=== PATIENT | male | born 1990 | race Caucasian/White ===

== ENCOUNTER 2019-09-22 10:53 | Emergency (ER) | payer SELFPAY ==
[2019-09-22 11:06] VITALS: Wt 68.2 kg
[2019-09-22] MEDS ORDERED: SMZ-TMP DS TABL1 TAB PO (12:52)
[2019-09-22 13:03] VITALS: BP 128/72
== END 2019-09-22 13:04 | disposition home or self-care (01) ==
LOC: D.ER 10:53
DX: K61.1 Rectal abscess (principal)

== ENCOUNTER 2019-09-23 18:06 | Inpatient (IN) | payer MEDICAID ==
[~2019-09-23] VITALS: Ht 165.1 cm; Wt 68.2 kg
[~2019-09-23 18:06] MED LIST: SMZ-TMP DS TABL1 TAB PO
[2019-09-23 19:05] LABS: BASOPHILS 0.1 % (0-2); EOSINOPHILS 0.7 % (0-7); HEMATOCRIT 44.3 % (42.0-54.0); HEMOGLOBIN 14.9 g/dL (13.5-17.5); IMMATURE GRANULOCYTES 0.4 % (0-5); MCH 31.2 pg (26.0-34.0); MCHC 33.6 g/dL (31.0-37.0); MCV 92.9 fL (80.0-100.0); MEAN PLATELET VOLUME 9.3 fL (7.4-10.4); MONOCYTES 9.8 % (2-11); PLATELET COUNT 243 10x3/uL (130-400); RBC 4.77 10x6/uL (4.20-6.10); RDW 12.2 % (11.5-14.5); WBC 16.3 10x3/uL (4.8-10.8)
[2019-09-23 19:28] LABS: CALC OSMOLALITY 269 mosm/kg (275-300); CALCIUM 9.3 mg/dL (8.5-10.1); CARBON DIOXIDE 25.3 mmol/L (21.0-32.0); CHLORIDE - SERUM 99 mmol/L (98-107); CREATININE - SERUM 1.2 mg/dL (0.6-1.3); GLUCOSE 110 mg/dL (74-106); POTASSIUM - SERUM 3.8 mmol/L (3.5-5.1); SODIUM 134 mmol/L (136-145); UREA NITROGEN 16 mg/dL (7-18); eGFR NON AFRICAN AMERICAN 77 mL/min (90-120)
[2019-09-23 19:35] LABS: ALBUMIN 3.7 g/dL (3.4-5.0); ALKALINE PHOSPHATASE 77 U/L (30-120); ALT (SGPT) 47 U/L (10-68); PROTEIN - SERUM 8.1 g/dL (6.4-8.2)
[2019-09-23 20:15] LABS: INR 1.05 (0.85-1.17); PROTIME 13.7 SECONDS (11.6-15.0)
--- NOTE | 2019-09-23 20:54 | NUR ---
PT ARRIVED TO FLOOR AT THIS TIME, MOTHER AT BEDSIDE. NO SIGNS OF DISTRESS. PT DENIES ANY PAIN OR NEEDS AT THIS TIME. CL IN REACH, BED IN LOWEST POSITION.
[2019-09-23 20:57] VITALS: BP 141/86; BMI 25.0
[2019-09-24] VITALS: BP 123/64
--- NOTE | 2019-09-24 00:03 | NUR ---
PT FEVER OF 101.4 REPORTED BY SURGICAL AIDES TEACHER. VERONICA KENT APN AT THIS TIME FOR ANY PRN MEDICATION FOR FEVER.
--- NOTE | 2019-09-24 02:12 | NUR ---
COLLECTED URINE FOR ORDERED STUDIES AND DELIVERED TO LAB.
--- NOTE | 2019-09-24 02:12 | NUR ---
GAVE MORPHINE IVP PER PRN ORDER PER REQUEST FOR PAIN AT LEVEL 10/10. WILL MONITOR FOR EFFECTIVENESS.
[2019-09-24 02:34] LABS: BILIRUBIN NEGATIVE (NEGATIVE); GLUCOSE NEGATIVE (NEGATIVE); KETONE NEGATIVE (NEGATIVE); NITRITE NEGATIVE (NEGATIVE); UROBILINOGEN NORMAL (NORMAL)
[2019-09-24 02:37] LABS: BACTERIA FEW /hpf (NEGATIVE); EPITHELIAL CELLS 0-5 /hpf (0-5); RED CELLS - URINE 0-5 /hpf (0-5); WHITE CELLS - URINE 0-5 /hpf (NEGATIVE)
[2019-09-24 04:00] VITALS: BP 123/78
--- NOTE | 2019-09-24 08:06 | NUR ---
PATIENT RECIEVED FROM PREVIOUS NURSE RESTING IN BED WITH GIRLFRIEND AT SIDE. NPO FOR POSSIBLE PROCEDURE FOR PERIANAL ABSCESS. CL IN REACH
[2019-09-24 09:10] VITALS: BP 130/75
[2019-09-24 09:44] VITALS: Ht 165.1 cm; Wt 68.2 kg
[2019-09-24 12:52] VITALS: BP 127/82
--- NOTE | 2019-09-24 13:37 | NUR ---
PRE-OP MEDICATIONS GIVEN AND PATIENT TAKEN BY BED FOR I&D PERIRECTAL ABCESS.
[2019-09-24 14:56] VITALS: BP 125/80
--- NOTE | 2019-09-24 19:30 | NUR ---
PT SITTING UP IN BED WITHOUT DISTRESS, AOX4. GIRLFRIEND AT BEDSIDE. IV RIGHT FA INFUSING NS @ 75. PT REQUESTING PAIN MED CLOSER TO TIME TO SLEEP. STATES WILL CALL WHEN HE WANTS IT. DENIES OTHER NEEDS AT THIS TIME. CL IN REACH, WILL CTM
[2019-09-24 20:00] VITALS: BP 114/67
--- NOTE | 2019-09-24 22:45 | NUR ---
PT STATES PAIN 9/10 IN RAVI RECTAL AREA. GAVE MORPHINE ORDERED. DENIES OTHER NEEDS. CL IN REACH, WILL CTM
[2019-09-25] VITALS: BP 111/73
--- NOTE | 2019-09-25 01:45 | NUR ---
PT STATES PAIN 9/10 IN RAVI RECTAL AREA, GAVE MORPHINE ORDERED. DENIES OTHER NEEDS. CL IN REACH, WILL CTM
[2019-09-25 04:00] VITALS: BP 105/56
--- NOTE | 2019-09-25 04:45 | NUR ---
PT STATES PAIN 02/06, GAVE MORPHINE ORDERED. DENIES OTHER NEEDS. WILL CTM
[2019-09-25 05:13] LABS: CALC OSMOLALITY 275 mosm/kg (275-300); CALCIUM 8.5 mg/dL (8.5-10.1); CARBON DIOXIDE 28.6 mmol/L (21.0-32.0); CHLORIDE - SERUM 104 mmol/L (98-107); GLUCOSE 128 mg/dL (74-106); MAGNESIUM - SERUM 2.1 mg/dL (1.8-2.4); SODIUM 137 mmol/L (136-145); UREA NITROGEN 13 mg/dL (7-18)
[2019-09-25 05:18] LABS: BASOPHILS 0.1 % (0-2); EOSINOPHILS 0 % (0-7); IMMATURE GRANULOCYTES 0.2 % (0-5); LYMPHOCYTES 6.1 % (15-50); MCHC 33.3 g/dL (31.0-37.0); MCV 92.9 fL (80.0-100.0); MEAN PLATELET VOLUME 9.1 fL (7.4-10.4); MONOCYTES 6.1 % (2-11); NEUTROPHILS 87.5 % (40-80); PLATELET COUNT 256 10x3/uL (130-400); RDW 11.8 % (11.5-14.5); WBC 15.8 10x3/uL (4.8-10.8)
[2019-09-25 05:28] LABS: CREATININE - SERUM 0.8 mg/dL (0.6-1.3); eGFR NON AFRICAN AMERICAN > 90 mL/min (90-120)
--- NOTE | 2019-09-25 08:00 | NUR ---
ASSESSMENT PER FLOW SHEET. PT IS WITHOUT DISTRESS.MONITOR FOR NEEDS
[2019-09-25 08:09] VITALS: BP 105/78
[2019-09-25] MEDS ORDERED: LEVOFLOXACIN500 MG PO (11:18)
[2019-09-25] MEDS ORDERED: FLAGYL500 MG PO (11:18)
[2019-09-25] MEDS ORDERED: HYDROCODON-ACE1 EAC7 PO (11:19)
[2019-09-25] MEDS ORDERED: MIRALAX17 GM PO (11:19)
--- NOTE | 2019-09-25 11:33 | NUR ---
PAIN MEDS ORDERED PER SEP.IV WAS TENDER THIS AM AND DISCONNECTED FROM FLUIDS. IF FLUSHED WITH SALINE,STILL VERY TENDER.IV DCD WITH CATH TIP INTACT. [facility]PA RETURNED TO [facility].
--- NOTE | 2019-09-25 12:45 | NUR ---
DRESSING CHANGED ORDERED.TEACHING WITH FAMILY.
--- NOTE | 2019-09-25 17:35 | NUR ---
DISCHARGE INSTRUCTIONS,STATES UNDERSTANDING.LEFT UNIT VIA WHEELCHAIR FOR TRANSPORT HOME
--- NOTE | 2019-10-02 08:46 | OP ---
PATIENT NAME: MG CHICAS MEDICAL RECORD: [id number] :89 LOCATION:[id number] ADMISSION DATE:09/24/19 SURGEON: ROSY WEIR MD DATE OF OPERATION: 09/24/2019 SURGEON: Rosy Weir MD PREOPERATIVE DIAGNOSIS: Perirectal abscess. POSTOPERATIVE DIAGNOSIS: Perirectal abscess. PROCEDURE PERFORMED: Incision and drainage of a perirectal abscess. ANESTHESIA: General. COMPLICATIONS: None. SPECIMENS: Wound cultures. Case was grossly contaminated. ESTIMATED BLOOD LOSS: 10 cc. OPERATIVE COURSE: After consent was obtained, the patient was taken to the operating room and placed in supine position on the operating table. Next, general anesthesia was given via endotracheal intubation after a timeout was performed to confirm the correct patient and procedure. The patient was placed into the lithotomy position. A digital rectal exam was performed. There was no evidence of a draining sinus into the rectum. There was significant fluctuance and erythema. A perineal block was performed using 30 mL of 1% lidocaine, the area of greatest fluctuance. An elliptical incision was made. There was approximately 20 cc of purulent fluid expressed in the wound. At this time, anaerobic and aerobic cultures were obtained and sent for Gram stain culture and sensitivity. All loculations of the abscess cavity were broken up with blunt dissection. The abscess cavity was then irrigated with normal saline. The abscess cavity was then packed with 1-inch iodoform gauze and covered with sterile gauze dressings. At the end of the case, all needle and instrument counts were correct. No complications occurred. The patient was extubated and transferred to the PACU in stable condition. TRANSINT:[id number] Voice Confirmation ID: [id number] DOCUMENT ID: [id number] ROSY WEIR MD at 0846 CC: [id number] DICTATION DATE: 10/01/19 1501 MANAGER CASINO: 10/01/19 1606 DIS IN 09/25/19 [place] [id number]
== END 2019-09-25 17:35 | disposition home or self-care (01) | DRG 345 ==
LOC: D.ER 18:06 → D.MS 20:03 → OBSVTIME 20:22 → D.MS 09-24 05:04
PROVIDERS: Emergency Medicine; Family Medicine; Surgery; ADMIT Internal Medicine Nephrology; ATTEND Internal Medicine Nephrology
PROC: 0D9P0ZZ Drainage of Rectum, Open Approach (ICD-10-PCS; principal; 2019-09-24 13:00)
DX: K61.1 Rectal abscess (principal); F17.213 Nicotine dependence, cigarettes, with withdrawal; E87.1 Hypo-osmolality and hyponatremia